=== PATIENT | male | born 1965 | race Caucasian/White ===

== ENCOUNTER → 2025-03-14 16:02 | Outpatient (REF) | payer OTHER, SELFPAY | LOC: PAVMRI 16:02 | PROVIDERS: ATTENDING PHYSICIAN Student in an Organized Health Care Education/Training Program; FAMILY PHYSICIAN Nurse Practitioner Family | DX: M25.561 Pain in right knee (principal); S83.249A Other tear of medial meniscus, current injury, unspecified knee, initial encounter | CPT/HCPCS: 73721 ==

== ENCOUNTER → 2025-03-28 18:17 | Outpatient (REF) | payer OTHER, SELFPAY | LOC: MRI 18:17 | PROVIDERS: ATTENDING PHYSICIAN Student in an Organized Health Care Education/Training Program; FAMILY PHYSICIAN Nurse Practitioner Family | DX: S83.249A Other tear of medial meniscus, current injury, unspecified knee, initial encounter (principal); M25.561 Pain in right knee | CPT/HCPCS: 73723; A9575 ==